=== PATIENT | female | born 1985 | race Caucasian/White ===

== ENCOUNTER 2020-11-05 03:30 | Emergency (ER) | payer OTHER, SELFPAY ==
[2020-11-05 03:38] VITALS: BP 127/86; PULSE 89; RESP 16; TEMP 36.9; O2SAT 100
--- NOTE | 2020-11-05 03:48 | ED.EXTPRO ---
HPI - Extremity Problem General Chief complaint: Extremity Problem,Nontraumatic Stated complaint: low back, leg pain Time Seen by Provider: 11/05/20 03:48 History of Present Illness HPI Narrative: 35 yo female w/ h/o sciatica presents to the ED for low back pain. She has had right low back pain for a few weeks. It radiates down the back of the right leg. She has associated paresthesias in the right foot. Pain is worse with anything but being in supine in a slightly inclined position. She is on muscle relaxers, and just finished a course of steroids. She is not able to sleep or drive due to pain. No weakness, incontinence, fever, trauma. Related Data Home Medications Medication Instructions Recorded Confirmed prenat.vits,cam,[id number] 1 tablet PO DAILY 09/24/19 03/02/20 Allergies Allergy/AdvReac Type Severity Reaction Status Date / Time amoxicillin Allergy Mild Other Verified 11/05/20 04:01 codeine Allergy Unknown Tongue Verified 11/05/20 04:01 swelling Review of Systems Review of Systems: All systems reviewed & are unremarkable except as noted in HPI and below Constitutional: Constitutional: Denies chills, Denies fever(s) and Denies weakness Cardiovascular: Cardiovascular: Denies chest pain Respiratory: Respiratory: Denies dyspnea Gastrointestinal: Gastrointestinal: Denies nausea Musculoskeletal: Musculoskeletal: Reports as per HPI Neurologic: Reports as per HPI PMFSH Past Medical History Medical History Migraine Vaginal abnormality in , delivered Surgical History Surgical History [place] teeth extracted around age 27 Family History Family History Father Hypertension Family history of cardiovascular disease Social History Social History Smoking status: Never smoker Second hand tobacco smoke exposure: No Alcohol intake: current Alcohol use details: Not right now after baby delivery. Substance use: never Substance use type: does not use Gender identity (if verbalized by the patient): Female Spiritual care concerns: No Agree to blood products: Yes Exam Const: General: healthy appearing, no acute distress and alert Orientation/consciousness: patient oriented x3 HENMT: Head: normal to inspection Resp: Effort & Inspection: normal respiratory effort Auscultation: clear to auscultation bilaterally Cardio: Rate: regular rate Rhythm: regular rhythm Back/Spine/Pelvis: Thoracic/Lumbar Spine: thoracic and lumbar spine normal to inspection and straight leg raise positive (right) Skin: General skin exam: normal color Wounds: no wounds Neuro: General: patient oriented x3, moves all extremities, no focal motor deficits and CN's II-XI intact bilaterally Speech: normal speech Extrem: General: normal to inspection Course Vital Signs Vital signs: Vital Signs Temperature 36.9 C 11/05/20 03:38 Pulse Rate 89 11/05/20 03:38 Respiratory Rate 16 11/05/20 03:38 Blood Pressure 127/86 11/05/20 03:38 Pulse Oximetry 100 11/05/20 03:38 Temperature 36.9 C 11/05/20 03:38 Pulse Rate 89 11/05/20 03:38 Respiratory Rate 16 11/05/20 03:38 Blood Pressure 127/86 11/05/20 03:38 Pulse Oximetry 100 11/05/20 03:38 MDM - Extremity (Nontraumatic) MDM Narrative Medical decision making narrative: Symptoms and exam consistent with sciatic. CT scan unlikely to be beneficial. No red flag symptoms or exam findings requiring emergent MRI or transfer. More comfortable and able to ambulate after treatment. Differential Diagnosis Differential diagnosis: Likely other (sciatica, radiculopathy, ) Medical Records Attestation: I reviewed the patient's medical records. Discharge Plan Discharge Clinical Impression: Sciatica
[2020-11-05] MEDS: traMADol HCL (*CRX) 50 MG TABLET PO (04:20)
[2020-11-05] MEDS: KETOROLAC (*BKC) 60 MG/2 ML VIAL IM (04:20)
[2020-11-05] MEDS: diazePAM INJ (*CRX) 10 MG/2 ML SYRINGE 5 MG IM (04:20)
== END 2020-11-05 05:24 | disposition home or self-care (01) ==
PROVIDERS: Emergency Provider Emergency Medicine; PCP Family Medicine
DX: M54.41 Lumbago with sciatica, right side (principal)
CPT/HCPCS: 96372; 99284; A9270; J1885; J3360

== ENCOUNTER → 2021-02-18 07:38 | Outpatient (CLI) | payer OTHER, SELFPAY ==
--- NOTE | ~2021-02-18 | MR_ITS ---
EXAMINATION: MR brain/brain stem wo con DATE: 02/18/2021 08:24 INDICATION: Unspecified symptoms and signs involving cognitive functions. Migraine headache. TECHNIQUE: Magnetic resonance imaging (MRI) of the brain and brainstem was performed without intraven ous contrast. Sequences included sagittal and axial T1-weighted FSE, axial diffusion-weighted FS EPI, axial T2*-weighted GRE, axial T2-weighted FLAIR Propeller, and axial T2-weighted Propeller. Apparent diffusion coefficient (ADC) maps were created. COMPARISON: None. FINDINGS: There is no intracranial hemorrhage, acute infarction, or abnormal intracranial mass lesion . The ventricles are normal in size. There is mild mucosal thickening in the paranasal sinuses. The m astoid air cells are normal. The orbits are normal. IMPRESSION: 1. Normal brain. Reviewed, dictated and finalized at location A. IMPRESSION: 1. Normal brain.
== END ==
PROVIDERS: PCP Family Medicine
DX: R41.9 Unspecified symptoms and signs involving cognitive functions and awareness (principal)
CPT/HCPCS: 70551

== ENCOUNTER → 2021-05-09 07:44 | Outpatient (CLI) | payer OTHER, SELFPAY ==
--- NOTE | ~2021-05-09 | MR_ITS ---
EXAMINATION: MR lumbar spine wo/w con EXAM DATE: 05/09/2021 09:04 INDICATION: Herniated nucleus pulposus, L5-S1. Right lower extremity weakness. TECHNIQUE: Multi-sequential, multiplanar MR images of the lumbar spine were obtained without contrast . Sagittal T1, T2, T2 fat saturation images. Axial T2 weighted images. Axial T1 weighted sequence. Patient was then injected with 14 mL Multihance intravenous contrast and reimaged. Postcontrast axi al and sagittal T1-weighted fat saturation sequences were obtained. FINDINGS: There is moderate loss of the L5-S1 disc height with small annular fissure. There is 2 to 3 mm retrolisthesis L5 on S1. The vertebral bodies are otherwise aligned. The vertebral body and disc heights are otherwise well maintained. There are no suspicious marrow signal abnormalities. Paraspina l soft tissue is unremarkable. Some postoperative enhancement in the right L5 hemilaminotomy bed and surrounding right S1 nerve root in the lateral recess, probable discectomy. Level by level evaluation: T12-L1: Disc does not extend beyond the endplate margin. Facet arthropathy: None. Neural foraminal stenosis: No stenosis. Central canal stenosis: No stenosis. L1-L2: Disc does not extend beyond the endplate margin. Facet arthropathy: Mild. Neural foraminal stenosis: No stenosis. Central canal stenosis: No stenosis. L2-L3: Disc does not extend beyond the endplate margin. Facet arthropathy: Mild. Neural foraminal stenosis: No stenosis. Central canal stenosis: No stenosis. L3-L4: Disc does not extend beyond the endplate margin. Facet arthropathy: Mild to moderate. Neural foraminal stenosis: No stenosis. Central canal stenosis: No stenosis. L4-L5: There is a minimal diffuse disc bulge. Facet arthropathy: Mild to moderate. Neural foraminal stenosis: No stenosis. Central canal stenosis: No stenosis. L5-S1: There is a mild diffuse disc bulge. Facet arthropathy: Mild to moderate. Neural foraminal stenosis: No stenosis. Central canal stenosis: Mild. No evidence of right hemicolonic laminotomy. IMPRESSION: 1. Postoperative enhancement in L5-S1 right lateral recess, hemilaminotomy, discectomy surgical site . 2. No stenosis. Reviewed, dictated and finalized at location G. [employer] IMPRESSION: 1. Postoperative enhancement in L5-S1 right lateral recess, hemilaminotomy, di scectomy surgical site. 2. No stenosis.
[2021-05-09 08:24] LABS: Estimated Glomerular Filt Rate > 60
== END ==
PROVIDERS: PCP Family Medicine
DX: M51.27 Other intervertebral disc displacement, lumbosacral region (principal)
CPT/HCPCS: 72158; A9577

== ENCOUNTER 2024-04-09 05:56 | Day surgery (SDC) | payer OTHER, SELFPAY ==
[2024-02-15 13:48] VITALS: BMI 23.0
[2024-04-01 13:24] VITALS: BMI 23.0
--- NOTE | 2024-04-08 15:50 | WPDANESEPPF ---
Anes - Initial Pre Proc Eval Procedure: Operation Date: 04/09/24 07:30 Proposed Procedures p Diagnostic Colonoscopy - Chente Fontenot MD Date/Time: 04/08/24 15:50 Surgeon: Chente Fontenot MD Pre Op Diagnosis: Melena.Abdominal Pain,unspec.Other Specified Sympt Patient Data Age: 39 Gender: F Height: 1.83 m Weight: 77 kg Allergies Allergy/AdvReac Type Severity Reaction Status Date / Time codeine Allergy Severe Tongue Verified 04/09/24 06:22 swelling amoxicillin Allergy Mild Other Verified 04/09/24 06:22 Home Medications ?Medication ?Instructions ?Recorded ?Confirmed ?Type methocarbamol 750 mg tablet 750 mg PO ONCE muscle spasm 06/27/22 04/09/24 History quetiapine 25 mg tablet (Seroquel) 25 mg PO QHS 06/27/22 04/09/24 History scopolamine base 1 mg over 3 days 1 patch transdermal Q3D PRN motion 07/12/23 04/01/24 Rx transdermal patch sickness #10 ea galcanezumab-gnlm 120 mg/mL 120 mg subcut MONTHLY #1 mL 07/13/23 04/09/24 Rx subcutaneous pen injector (Emgality Pen) propranolol 10 mg tablet 10 mg PO Q12H #1 tablet 07/13/23 04/09/24 Rx tramadol 50 mg tablet 50 mg PO Q6H PRN pain #20 tabs 10/29/23 04/09/24 Rx drospirenone (contraceptive) 4 mg 4 mg PO DAILY 04/01/24 04/09/24 History (28) tablet (Slynd) Patient hx anesthesia problems: none Family hx anesthesia problems: none Results Review: All pre-operative results and documents have been reviewed as part of the pre-operative evaluation. [facility] Past Medical History Medical History (Updated 04/09/24 @ 07:02 by Gregory Hubbard DO) POTS (postural orthostatic tachycardia syndrome) Blood in stool Psoriatic arthritis Abdominal pain Alternating constipation and diarrhea Acute herniation of intervertebral disc Migraine Vaginal abnormality in , delivered Surgical History Surgical History H/O discectomy [place] teeth extracted around age 27 Family History Family History Father Hypertension Family history of cardiovascular disease Son Sleep apnea Social History Social History Smoking status: Never smoker Second hand tobacco smoke exposure: No Alcohol intake: current Drinks per week: 1 Alcohol use details: 2/month Substance use: never Substance use type: does not use Lack of Transportation: No Lack of Food: Never True Current Housing: I Have Housing Concerned About Future Housing: No Difficulty Paying Gas/Electric Bills: No Difficulty Paying for Meds: No Currently Unemployed: No Education: Decline to Answer Difficulty w/ Childcare or Family Care: No Living arrangements: with family Occupation/Education: occupation Gender identity (if verbalized by the patient): Female Sexual Orientation (if Verbalized by the Patient): Straight or Heterosexual Spiritual care concerns: No Agree to blood products: Yes Anes - Eval Final PreProcedure Day of Procedure 04/08/24 15:50 Patient weight: normal Heart: regular rate and rhythm Lungs: clear to auscultation and normal air movement Airway: Mallampati scale class II Neurological: alert and oriented Last oral intake: >/= 8 hours ASA classification: II Emergent: no Anesthetic plan: proceed Anesthesia type and monitoring: general GIVS and standard monitoring Results Review: All pre-operative results and documents have been reviewed as part of the pre-operative evaluation. Informed Consent: The patient's anesthetic plan and its attendant risks and benefits were discussed with the patient/family/POA. Questions were solicited and answers provided to the satisfaction of the patient/family/POA.
[2024-04-09 06:24] VITALS: BP 120/88; PULSE 127; RESP 15; TEMP 37.2; O2SAT 99
[2024-04-09] MEDS: LACTATED RINGERS 1,000 ML 150 ML IV CONT (06:27)
--- NOTE | 2024-04-09 07:22 | PM.HPGS ---
History of Present Illness History of Present Illness Consent: Risks, benefits, and alternatives have been discussed and questions answered. Patient agrees to proceed with procedure. Chief complaint: Blood in stool, Abdominal Pain Narrative: Akilah Betancourt is a 39 year old female for colonoscopy. It is alteration in bowel habits diarrhea alternating with constipation. Sometimes constipation is severe. She occasionally will have bright red blood per rectum described as streaks of blood in the stool. She has rather significant left lower quadrant abdominal pain. She reports fiber supplementation laxatives and other therapies have failed to improve her symptoms. Currently followed by the GI office she is referred for a colobnoscopy to assess more thoroughly. Family history is noncontributory. Review of Systems Review of Systems: All systems reviewed & are unremarkable except as noted in HPI and below PMFSH Past Medical History Medical History (Updated 04/09/24 @ 07:02 by Gregory Hubbard DO) POTS (postural orthostatic tachycardia syndrome) Blood in stool Psoriatic arthritis Abdominal pain Alternating constipation and diarrhea Acute herniation of intervertebral disc Migraine Vaginal abnormality in , delivered Surgical History Surgical History H/O discectomy [place] teeth extracted around age 27 Family History Family History Father Hypertension Family history of cardiovascular disease Son Sleep apnea Social History Social History Smoking status: Never smoker Second hand tobacco smoke exposure: No Alcohol intake: current Drinks per week: 1 Alcohol use details: 2/month Substance use: never Substance use type: does not use Lack of Transportation: No Lack of Food: Never True Current Housing: I Have Housing Concerned About Future Housing: No Difficulty Paying Gas/Electric Bills: No Difficulty Paying for Meds: No Currently Unemployed: No Education: Decline to Answer Difficulty w/ Childcare or Family Care: No Living arrangements: with family Occupation/Education: occupation Gender identity (if verbalized by the patient): Female Sexual Orientation (if Verbalized by the Patient): Straight or Heterosexual Spiritual care concerns: No Agree to blood products: Yes Meds Home Medications and Allergies Home Medications ?Medication ?Instructions ?Recorded ?Confirmed ?Type methocarbamol 750 mg tablet 750 mg PO ONCE muscle spasm 06/27/22 04/09/24 History quetiapine 25 mg tablet (Seroquel) 25 mg PO QHS 06/27/22 04/09/24 History scopolamine base 1 mg over 3 days 1 patch transdermal Q3D PRN motion 07/12/23 04/01/24 Rx transdermal patch sickness #10 ea galcanezumab-gnlm 120 mg/mL 120 mg subcut MONTHLY #1 mL 07/13/23 04/09/24 Rx subcutaneous pen injector (Emgality Pen) propranolol 10 mg tablet 10 mg PO Q12H #1 tablet 07/13/23 04/09/24 Rx tramadol 50 mg tablet 50 mg PO Q6H PRN pain #20 tabs 10/29/23 04/09/24 Rx drospirenone (contraceptive) 4 mg 4 mg PO DAILY 04/01/24 04/09/24 History (28) tablet (Slynd) Allergies Allergy/AdvReac Type Severity Reaction Status Date / Time codeine Allergy Severe Tongue Verified 04/09/24 06:22 swelling amoxicillin Allergy Mild Other Verified 04/09/24 06:22 Vital Signs Vital Signs - 24 hr 04/09/24 06:24 Temperature 99 F Pulse Rate 127 H Respiratory Rate 15 Blood Pressure 120/88 Pulse Oximetry 99 Oxygen Delivery Room Air Exam Narrative: Physical exam reveals patient to be alert. Signs stable. HEENT exam is unremarkable. Patient is anicteric. Lungs are clear to auscultation and to percussion. Heart is without murmur or extra sounds. Abdomen bowel sounds are present soft nontender with no organomegaly. Digital external rectal exam normal. Assessment and Plan Assessment and plan (1) Abdominal pain: Code(s): R10.9 - Unspecified abdominal pain Status: Acute Assessment and Plan: Patient with ongoing left lower quadrant abdominal pain. Colonoscopy requested to assess more thoroughly. Suggest high-fiber diet and regular use of stool softeners and laxatives. Further recommendations may be given after endoscopy. (2) Blood in stool: Code(s): K92.1 - Melena Status: Acute Assessment and Plan: Intermittent bright red blood per rectum described associated with hard stools and constipation. Plan for colonoscopy to assess more thoroughly. Continued treatment of her irregular bowel habits are courage to.
[2024-04-09 07:53] VITALS: BP 88/56; PULSE 106; RESP 14; O2SAT 100
[2024-04-09 08:03] VITALS: BP 99/60; PULSE 109; RESP 14; O2SAT 100
[2024-04-09 08:13] VITALS: BP 105/73; PULSE 94; RESP 14; O2SAT 100
--- NOTE | 2024-04-09 08:36 | WPDANESPN ---
Anes - Prog Note Post-Op Date/Time: 04/09/24 08:36 Cardiovascular status: normal Respiratory status: normal Airway patency: baseline Mental status: baseline Post-Op hydration status: normal Vital Signs: Last Vital Signs Temp 37.2 C 04/09/24 06:24 Pulse 94 04/09/24 08:13 Resp 14 04/09/24 08:13 BP 105/73 04/09/24 08:13 Pulse Ox 100 04/09/24 08:13 O2 Del Method Room Air 04/09/24 08:13 Pain Score (VAS): 0 I/O: Intake & Output 04/08/24 04/09/24 04/09/24 23:59 07:59 15:59 Intake Total 800 200 Balance 800 200 Post-procedural complaints: none Patient Feedback: Patient satisfied with anesthetic care. Other Findings: Patient vital signs back to baseline. Patient denies nausea and vomiting. Patient's pain under control. Patient OK for discharge.
== END 2024-04-09 08:27 | disposition home or self-care (01) ==
PROVIDERS: PCP Family Medicine; Visit Provider Internal Medicine Gastroenterology
PROC: 0DJD8ZZ Inspection of Lower Intestinal Tract, Via Natural or Artificial Opening Endoscopic (ICD-10-PCS; CPT 45378; principal; 2024-04-09 07:30)
DX: K92.1 Melena (principal); K59.00 Constipation, unspecified; R19.7 Diarrhea, unspecified; R10.32 Left lower quadrant pain
CPT/HCPCS: 45378

== ENCOUNTER 2024-10-16 09:21 | Outpatient (CLI) | payer OTHER, SELFPAY ==
--- NOTE | ~2024-10-16 | XR_ITS ---
EXAM/ PROCEDURE: XR lumbar spine 2-3V - 10/16/2024 9:29 CDT HISTORY: 39 years old Female with Other intervertebral disc displacement, lumbosacral region COMPARISON: None available TECHNIQUE: Three view(s) FINDINGS/ IMPRESSION: There are no fractures or dislocations.Intervertebral disc spaces are within normal limits. Reviewed, dictated and finalized at location A.
== END 2024-10-16 09:22 | disposition home or self-care (01) ==
PROVIDERS: PCP Family Medicine; Visit Provider Nurse Practitioner Adult Health
DX: M51.27 Other intervertebral disc displacement, lumbosacral region (principal)
CPT/HCPCS: 72100